=== PATIENT | male | born 1995 | race Caucasian/White ===

== ENCOUNTER 2016-08-15 18:03 | Emergency (ER) | payer BC ==
[2016-08-15 18:24] VITALS: BP 123/83
--- NOTE | 2016-08-15 19:12 | UC ---
Dental HPI - HPI Summary HPI Summary: patient has had increased upper left jaw pain extending up below the left eye. has had previous dental work on those teeth - History of Current Complaint Chief Complaint: UCDentalProblem Stated Complaint: DENTAL Time Seen by Provider: 08/15/16 19:00 Hx Obtained From: Patient Onset/Duration: Sudden Onset, Lasting Days Severity: Moderate - Allergies/Home Medications Allergies/Adverse Reactions: Allergies Allergy/AdvReac Type Severity Reaction Status Date / Time No Known Allergies Allergy Verified 08/15/16 18:24 Home Medications: Home Medications Ibuprofen TAB* [Advil TAB*] 200 mg PO Q8H PRN 08/15/16 [History Confirmed ] PMH/Surg Hx/FS Hx/Imm Hx Previously Healthy: Yes Respiratory History Of: Reports: Asthma - Surgical History Surgical History: Yes Surgery Procedure, Year, and Place: R knee surgery 03/2012 [place] [facility] [place] - Family History Known Family History: Positive: Hypertension, Other - [place] - Social History Alcohol Use: None Substance Use Type: None Smoking Status (MU): Never Smoked Tobacco Type: Cigars Review of Systems Constitutional: Negative Skin: Negative Eyes: Negative ENT: Dental Pain Respiratory: Negative Cardiovascular: Negative Gastrointestinal: Negative Genitourinary: Negative Motor: Negative Neurovascular: Negative Musculoskeletal: Negative Neurological: Negative Psychological: Negative All Other Systems Reviewed And Are Negative: Yes Physical Exam Triage Information Reviewed: Yes Appearance: Well-Appearing, Well-Nourished, Pain Distress Vital Signs: Initial Vital Signs Temp 99.2 F 08/15/16 18:20 Pulse 85 08/15/16 18:20 Resp 18 08/15/16 18:20 BP 123/83 08/15/16 18:20 Pulse Ox 100 08/15/16 18:20 Vital Signs Reviewed: Yes Eye Exam: Normal Eyes: Positive: Conjunctiva Clear ENT Exam: Normal ENT: Positive: Pharynx normal, TMs normal, Other: - oral mucosa and upper gum line on left side slightly erythemic, left maxillary sinus pressure Dental Exam: Normal Dental: Positive: Other: - no fracture noted, slight discoloration of molar noted where pain originates Neck exam: Normal Neck: Positive: Supple, Nontender, No Lymphadenopathy Respiratory Exam: Normal Respiratory: Positive: Chest non-tender, Lungs clear, Normal breath sounds Cardiovascular Exam: Normal Cardiovascular: Positive: RRR, No Murmur, Pulses Normal Abdominal Exam: Normal Abdomen Description: Positive: Nontender, No Organomegaly, Soft Bowel Sounds: Positive: Present Musculoskeletal Exam: Normal Musculoskeletal: Positive: Strength Intact, ROM Intact, No Edema Neurological Exam: Normal Neurological: Positive: Alert, Muscle Tone Normal Psychological Exam: Normal Skin Exam: Normal Dental Complaint Course/Dx - Course Course Of Treatment: hx obtained, exam performed, medication prescribed. dental referral given - Differential Dx/Diagnosis Differential Diagnosis/Dx: Dental Caries, Fractured Tooth, Tonsillitis Provider Diagnoses: dental infection Discharge - Discharge Plan Condition: Stable Disposition: HOME Patient Education Materials: Dental Abscess (ED) Additional Instructions: 1. take the medication as prescribed for the full week 2. oil pull 5-7 times a day for the next 3 days. then 2 times a day for the next week. 3. follow up with your dentist if symptoms persist even with treatment.
[2016-08-15] MEDS ORDERED: Amoxicillin/Clavulanate TAB* 875 MG PO ONE (19:18)
== END 2016-08-15 19:22 | disposition home or self-care (01) ==
LOC: UCCORT 18:03
DX: K04.7 Periapical abscess without sinus (principal); J45.909 Unspecified asthma, uncomplicated
CPT/HCPCS: 99212; A9270-GY; G0463

== ENCOUNTER 2018-04-01 15:03 | Emergency (ER) | payer BC ==
[2018-04-01 15:49] VITALS: BP 146/92
--- NOTE | 2018-04-01 15:55 | UC ---
UC General HPI - HPI Summary HPI Summary: pt noted a little swelling, redness and warmth over his L elbow this am. he has been leaning on the elbow while painting. he also picked a scab off the elbow 2 days ago. no fever or jont pain. last tetanus was within 10 years. - History of Current Complaint Chief Complaint: FAREEDkin Stated Complaint: LEFT ELBOW SKIN CONCERN Time Seen by Provider: 04/01/18 15:49 Hx Obtained From: Patient Pain Intensity: 3 Aggravating: nothing Associated Signs & Symptoms: Negative: Fever - Allergy/Home Medications Allergies/Adverse Reactions: Allergies Allergy/AdvReac Type Severity Reaction Status Date / Time No Known Allergies Allergy Verified 04/01/18 15:42 PMH/Surg Hx/FS Hx/Imm Hx Previously Healthy: Yes - Surgical History Surgical History: Yes Surgery Procedure, Year, and Place: R knee surgery 03/2012 done at [facility] [place] WISDOM TEETH EXTRACTIONS - Family History Known Family History: Positive: Hypertension, Other - [place] - Social History Alcohol Use: Occasionally Substance Use Type: None Smoking Status (MU): Smoker, Current Status Unknown Type: Cigars Amount Used/How Often: ONCE A MONTH - Immunization History Vaccination Up to Date: Yes Review of Systems All Other Systems Reviewed And Are Negative: Yes Constitutional: Positive: Negative Skin: Positive: Negative Eyes: Positive: Negative ENT: Positive: Negative Respiratory: Positive: Negative Cardiovascular: Positive: Negative Gastrointestinal: Positive: Negative Genitourinary: Positive: Negative Motor: Positive: Negative Neurovascular: Positive: Negative Musculoskeletal: Positive: Negative Neurological: Positive: Negative Psychological: Positive: Negative Is Patient Immunocompromised?: No Physical Exam Triage Information Reviewed: Yes Appearance: Well-Appearing Vital Signs: Initial Vital Signs Temp 96.8 F 04/01/18 15:43 Pulse 88 04/01/18 15:43 Resp 15 04/01/18 15:43 BP 146/92 04/01/18 15:43 Pulse Ox 100 04/01/18 15:43 Vital Signs Reviewed: Yes Eyes: Positive: Conjunctiva Clear ENT: Positive: Normal ENT inspection Neck: Positive: Supple, Nontender, No Lymphadenopathy Respiratory: Positive: Lungs clear, Normal breath sounds Cardiovascular: Positive: RRR, No Murmur Abdomen Description: Positive: Nontender, No Organomegaly, Soft Bowel Sounds: Positive: Present Musculoskeletal: Positive: Other: - LUE: SLIGHT SWELLING AND PINK OVER L ELBOW WITH CENTRAL SCAB C/W BURSITIS. ARE WARM TO TOUCH. NO STREAKING OR LUE ADENOPATHY. NO PAIN IN ELBOW JOINT WITH ACTIVE/PASSIVE ROM. LUE HAS FULL S/V/M FUNCTION. Neurological: Positive: Alert Psychological: Positive: Age Appropriate Behavior Skin Exam: Normal Course/Dx - Course Course Of Treatment: NO CONCERN FOR SEPTIC JOINT. EXAM C/W INFECTIOUS BURSITIS. NO HX MRSA THUS WILL COVER WITH KEFLEX AND CLOSE F/U. PT AGREES TO GO TO ER FOR ANY WORSENING AND WILL F/U ORTHO OTHER [place]. NO HX HTN, I THINK BP VISIT RELATED. PT ANXIOUS. - Differential Dx - Multi-Symptom Provider Diagnoses: INFECTIOUS BURSITIS L ELBOW Discharge - Sign-Out/Discharge Documenting (check all that apply): Patient Departure All imaging exams completed and their final reports reviewed: No Studies - Discharge Plan Condition: Stable Disposition: HOME Prescriptions: Cephalexin CAP* [Keflex CAP*] 500 mg PO TID 10 Days #30 cap Patient Education Materials: Cellulitis (ED), Elbow Bursitis (ED) Referrals: Miguel Chavarria MD [Medical Doctor] - 2 Days Additional Instructions: DIAGNOSIS: INFECTIOUS BURSITIS L ELBOW - Billing Disposition and Condition Condition: STABLE Disposition: Home
== END 2018-04-01 16:14 | disposition home or self-care (01) ==
LOC: UCCORT 15:03
DX: M71.122 Other infective bursitis, left elbow (principal); F17.210 Nicotine dependence, cigarettes, uncomplicated
CPT/HCPCS: 99212; G0463